=== PATIENT | female | born 1955 | race Caucasian/White ===

== ENCOUNTER → 2016-10-22 | Outpatient (CLI) | payer OTHER, MEDICAID ==
[~2016-10-22] MED LIST: ACYC-114 PO; ACYC400T4 PO; ALBU18HF INH; ALEN70TA3 PO; ANAS1TAB PO; ATAZ300C PO; BACL-19 PO; CALC-451 PO; CHON400C PO; DICL100G8 TP; DRON2.5C PO; DUONEB; EMTR1TAB12 PO; FLONASE; FLUT12AE INH; FURO20TA3 PO; GLUC1500 PO; GUAI-110 PO; LEVO750T26 PO; LISI2.5T PO; METH4TAB2 PO; METO25TA35 PO; OXYC10TA6 PO; OXYC5CAP4 PO; PRAV20TA2 PO; PRED10TA PO; PRED20TA PO; PROBIOTIC; REGADENOSON 0.4 MG/5 ML SYRINGE ONE; RITO100C PO; SULF1TAB3 PO; TIOT18CA INH; TRAM50TA2 PO; VENTOLIN HFA
== END | disposition home or self-care (01) ==
LOC: RAD 11:53 → MERGE 12:30
PROVIDERS: ATTEND Internal Medicine Cardiovascular Disease
DX: I10 Essential (primary) hypertension (principal); R60.9 Edema, unspecified
CPT/HCPCS: 78452; 93017; A9502; C9898; J2785

== ENCOUNTER 2016-11-12 20:05 | Emergency (ER) | payer OTHER, MEDICAID ==
[~2016-11-12] VITALS: Ht 154.9 cm; Wt 50.0 kg
[~2016-11-12 20:05] MED LIST changes: -REGADENOSON 0.4 MG/5 ML SYRINGE ONE
[2016-11-12 20:16] VITALS: BP 124/66
[2016-11-12] MEDS ORDERED: SODIUM CHLORIDE FLUSH 10ML SYR IVF ONE (21:30)
[2016-11-12] MEDS ORDERED: methylPREDNISolone SOD SUCC 125 MG/2 ML IVP ONE (21:30)
[2016-11-12 21:37] LABS: BLOOD UREA NITROGEN 24 mg/dL (7-18)
[2016-11-12] MEDS ORDERED: ALBUTEROL/IPRATROPIUM 2.5MG/0.5MG, 3 ML NPPB ONE (22:00)
[2016-11-12] MEDS ORDERED: ALBUTEROL/IPRATROPIUM 2.5MG/0.5MG, 3 ML ONE (22:04)
[2016-11-12] MEDS ORDERED: methylPREDNISolone SOD SUCC 125 MG/2 ML ONE (22:09)
== END 2016-11-12 23:44 | disposition home or self-care (01) ==
LOC: ED 23:30
DX: J44.1 Chronic obstructive pulmonary disease with (acute) exacerbation (principal); M79.89 Other specified soft tissue disorders; Z87.891 Personal history of nicotine dependence; Z85.3 Personal history of malignant neoplasm of breast
CPT/HCPCS: 36415; 71010; 80048; 82040; 83880; 84484; 85025; 93005; 94640; 96374; 99285; J2930; J7620

== ENCOUNTER 2017-01-29 11:53 | Inpatient (IN) | payer OTHER, MEDICAID ==
[~2017-01-29] VITALS: Ht 172.7 cm; Wt 50.7 kg
[~2017-01-29 11:53] MED LIST changes: +DICL100G19 TP; -DICL100G8 TP; -EMTR1TAB12 PO; +EMTR1TAB8 PO; +OXYC5CAP2 PO; -OXYC5CAP4 PO; +SULF-169 PO; -SULF1TAB3 PO
[2017-01-29] MEDS ORDERED: PLEASE ENTER HEIGHT AND WEIGHT MC SCH (12:30)
[2017-01-29] MEDS ORDERED: ASPIRIN 81 MG TABLET CHEW PO ONE (12:30)
[2017-01-29] MEDS ORDERED: SODIUM CHLORIDE FLUSH 10ML SYR IVF ONE (12:30)
[2017-01-29] MEDS ORDERED: ALBUTEROL SULFATE 2.5 MG/3 ML NPPB ONE (12:30)
[2017-01-29] MEDS ORDERED: ASPIRIN 81 MG TABLET CHEW ONE (12:33)
[2017-01-29 12:37] LABS: HEMATOCRIT 37.3 % (34.6-47.8); HEMOGLOBIN 12.4 g/dL (11.7-16.4); WHITE BLOOD COUNT 3.2 x10^3/uL (3.4-10)
[2017-01-29 12:46] LABS: BLOOD UREA NITROGEN 10 mg/dL (7-18)
[2017-01-29 12:52] LABS: ASPARTATE AMINO TRANSFERASE 27 U/L (15-37)
[2017-01-29 12:59] LABS: IS PT STATUS REG ER OR PRE ER? YES
[2017-01-29] MEDS ORDERED: OMNIPAQUE 350 MG/ML, 100ML BOTTLE ONE (14:12)
[2017-01-29] MEDS ORDERED: ALBUTEROL/IPRATROPIUM 2.5MG/0.5MG, 3 ML ONE (14:27)
[2017-01-29] MEDS ORDERED: ONDANSETRON 2MG/ML, 2ML IVPush PRN (15:30)
[2017-01-29] MEDS ORDERED: HYDROcodone/APAP 5/325 TABLET PO PRN (15:30)
[2017-01-29] MEDS ORDERED: ONDANSETRON ODT 4 MG PO PRN (15:30)
[2017-01-29] MEDS ORDERED: LABETALOL 5MG/ML, 20ML IVPush PRN (15:30)
[2017-01-29] MEDS ORDERED: morphine SULFATE 10 MG/ML, 1ML IVPush PRN (15:30)
[2017-01-29] MEDS ORDERED: DILT120C80 PO (15:39)
[2017-01-29 16:10] LABS: IS PT STATUS REG ER OR PRE ER? YES
[2017-01-29 17:13] VITALS: BP 129/76
[2017-01-29] MEDS ORDERED: ALBUTEROL SULFATE INH PRN (18:00)
[2017-01-29] MEDS ORDERED: GUAIFENESIN HOMEMEDPO PRN (18:00)
[2017-01-29] MEDS: [UNRECOGNIZED DRUG - OTHER] MC SCH (18:00)
[2017-01-29] MEDS ORDERED: PSEUDOEPHEDRNE HCL HOMEMEDPO PRN (18:00)
[2017-01-29] MEDS: ENOXAPARIN 40 MG/0.4 ML SQ SCH (18:32)
[2017-01-29] MEDS: ALBUTEROL/IPRATROPIUM 2.5MG/0.5MG, 3 ML NPPB SCH (19:10)
[2017-01-29 20:00] VITALS: BP 114/79
[2017-01-29] MEDS ORDERED: FLU VACC QS2017-18 (36MOS+) UP/PF 0.5 ML IM-VACC ONE (20:00)
[2017-01-29] MEDS: FLUTICASONE PROPIONATE INH SCH (21:00)
[2017-01-29] MEDS: BACLOFEN 10 MG TABLET PO SCH (21:23)
[2017-01-29] MEDS: DRONABINOL 2.5 MG CAPSULE PO SCH ×4 (21:23→23:11)
[2017-01-29] MEDS: ACYCLOVIR 400 MG TABLET PO SCH (21:23)
[2017-01-29] MEDS: PRAVASTATIN 20 MG TABLET PO SCH (21:23)
[2017-01-29] MEDS: DIPHENHYDRAMINE 50 MG CAPSULE PO PRN (21:24)
[2017-01-29 22:30] LABS: IS PT STATUS REG ER OR PRE ER? NO
[2017-01-30 01:03] VITALS: BP 109/79
[2017-01-30] MEDS: [UNRECOGNIZED DRUG - OTHER] MC SCH ×2 (02:00→10:00)
[2017-01-30] MEDS: DRONABINOL 2.5 MG CAPSULE PO SCH ×2 (05:46→17:27)
[2017-01-30 07:50] VITALS: BP 130/84
[2017-01-30] MEDS: ALBUTEROL/IPRATROPIUM 2.5MG/0.5MG, 3 ML NPPB SCH ×4 (07:50→19:20)
[2017-01-30] MEDS: FLUTICASONE PROPIONATE INH SCH ×2 (09:00→21:00)
[2017-01-30] MEDS ORDERED: ALENDRONATE 70 MG TABLET PO SCH (09:00)
[2017-01-30] MEDS ORDERED: IPRATROPIUM 0.5 MG/2.5 ML INHA NPPB SCH (09:00)
[2017-01-30] MEDS: DILTIAZEM 120 MG CAP.ER.24H PO SCH (09:09)
[2017-01-30] MEDS: BACLOFEN 10 MG TABLET PO SCH ×2 (09:09→19:54)
[2017-01-30] MEDS: ACYCLOVIR 400 MG TABLET PO SCH ×2 (09:09→19:54)
[2017-01-30] MEDS: CALCIUM/VITAMIN D3 250-125 TABLET PO SCH (09:09)
[2017-01-30 09:41] LABS: HEMATOCRIT 41.8 % (34.6-47.8); HEMOGLOBIN 13.6 g/dL (11.7-16.4); WHITE BLOOD COUNT 4.1 x10^3/uL (3.4-10)
[2017-01-30 09:44] LABS: BLOOD UREA NITROGEN 13 mg/dL (7-18)
[2017-01-30 09:47] LABS: ASPARTATE AMINO TRANSFERASE 39 U/L (15-37)
[2017-01-30] MEDS: ASPIRIN 81 MG TABLET EC PO SCH (12:08)
[2017-01-30 14:07] VITALS: BP 131/79
[2017-01-30] MEDS: ENOXAPARIN 40 MG/0.4 ML SQ SCH (17:23)
[2017-01-30 19:08] VITALS: BP 127/79
[2017-01-30] MEDS: GUAIFENESIN/DM 200-20MG, 10ML UDC PO PRN (19:54)
[2017-01-30] MEDS: DIPHENHYDRAMINE 50 MG CAPSULE PO PRN (19:54)
[2017-01-30] MEDS: PRAVASTATIN 20 MG TABLET PO SCH (19:54)
[2017-01-31 02:00] VITALS: BP 116/68
[2017-01-31] MEDS: ASPIRIN 81 MG TABLET EC PO SCH (05:18)
[2017-01-31] MEDS: DRONABINOL 2.5 MG CAPSULE PO SCH ×2 (05:18→17:27)
[2017-01-31 05:46] LABS: HEMATOCRIT 33.9 % (34.6-47.8); HEMOGLOBIN 11.1 g/dL (11.7-16.4); WHITE BLOOD COUNT 4.6 x10^3/uL (3.4-10)
[2017-01-31 06:00] LABS: BLOOD UREA NITROGEN 22 mg/dL (7-18)
[2017-01-31 06:31] VITALS: BP 128/82
[2017-01-31] MEDS: ALBUTEROL/IPRATROPIUM 2.5MG/0.5MG, 3 ML NPPB SCH ×4 (08:13→20:20)
[2017-01-31] MEDS: TRIUMEQ PO SCH (09:00)
[2017-01-31] MEDS: FLUTICASONE PROPIONATE INH SCH ×2 (09:00→21:00)
[2017-01-31] MEDS: BACLOFEN 10 MG TABLET PO SCH ×2 (09:03→19:34)
[2017-01-31] MEDS: ACYCLOVIR 400 MG TABLET PO SCH ×2 (09:03→19:34)
[2017-01-31] MEDS: DILTIAZEM 120 MG CAP.ER.24H PO SCH (09:03)
[2017-01-31] MEDS: CALCIUM/VITAMIN D3 250-125 TABLET PO SCH (09:03)
[2017-01-31 13:01] VITALS: BP 125/74
[2017-01-31] MEDS ORDERED: DILTIAZEM 60 MG CAP.ER.12H PO ONE (15:30)
[2017-01-31] MEDS: ENOXAPARIN 40 MG/0.4 ML SQ SCH (17:26)
[2017-01-31] MEDS: GUAIFENESIN/DM 200-20MG, 10ML UDC PO PRN (19:35)
[2017-01-31] MEDS: PRAVASTATIN 20 MG TABLET PO SCH (19:35)
[2017-01-31] MEDS: DIPHENHYDRAMINE 50 MG CAPSULE PO PRN (19:35)
[2017-01-31 19:39] VITALS: BP 122/75
[2017-02-01 02:00] VITALS: BP 148/86
[2017-02-01 05:24] LABS: HEMATOCRIT 34.7 % (34.6-47.8); HEMOGLOBIN 11.4 g/dL (11.7-16.4); WHITE BLOOD COUNT 5.6 x10^3/uL (3.4-10)
[2017-02-01] MEDS: ASPIRIN 81 MG TABLET EC PO SCH (05:25)
[2017-02-01] MEDS: DRONABINOL 2.5 MG CAPSULE PO SCH ×2 (05:26→16:41)
[2017-02-01 05:34] LABS: BLOOD UREA NITROGEN 25 mg/dL (7-18)
[2017-02-01] MEDS: ALBUTEROL/IPRATROPIUM 2.5MG/0.5MG, 3 ML NPPB SCH ×4 (07:00→20:24)
[2017-02-01 07:23] VITALS: BP 123/79
[2017-02-01] MEDS: FLUTICASONE PROPIONATE INH SCH ×2 (08:05→21:00)
[2017-02-01] MEDS: BACLOFEN 10 MG TABLET PO SCH ×2 (08:18→21:51)
[2017-02-01] MEDS: CALCIUM/VITAMIN D3 250-125 TABLET PO SCH (08:18)
[2017-02-01] MEDS: TRIUMEQ PO SCH (08:18)
[2017-02-01] MEDS: ACYCLOVIR 400 MG TABLET PO SCH ×2 (08:18→21:51)
[2017-02-01] MEDS ORDERED: DILTIAZEM CD 180 MG CAP.ER.24H PO SCH (09:00)
[2017-02-01 13:11] VITALS: BP 102/61
[2017-02-01] MEDS: DILTIAZEM 30 MG TABLET PO SCH ×2 (13:13→21:51)
[2017-02-01] MEDS: ENOXAPARIN 40 MG/0.4 ML SQ SCH (16:38)
[2017-02-01 19:51] VITALS: BP 109/71
[2017-02-01] MEDS: PRAVASTATIN 20 MG TABLET PO SCH (21:51)
[2017-02-01] MEDS: DIPHENHYDRAMINE 50 MG CAPSULE PO PRN (21:51)
[2017-02-02 02:03] VITALS: BP 118/72
[2017-02-02] MEDS: ALBUTEROL/IPRATROPIUM 2.5MG/0.5MG, 3 ML NPPB SCH ×4 (06:10→19:01)
[2017-02-02] MEDS: ASPIRIN 81 MG TABLET EC PO SCH (06:26)
[2017-02-02] MEDS: DRONABINOL 2.5 MG CAPSULE PO SCH ×2 (06:27→16:36)
[2017-02-02] MEDS ORDERED: CALCIUM CARBONATE 500 MG TAB.CHEW PO PRN (08:00)
[2017-02-02 08:33] VITALS: BP 132/81
[2017-02-02] MEDS: FLUTICASONE PROPIONATE INH SCH ×2 (09:00→21:00)
[2017-02-02] MEDS: TRIUMEQ PO SCH (09:12)
[2017-02-02] MEDS: ACYCLOVIR 400 MG TABLET PO SCH ×2 (09:14→21:24)
[2017-02-02] MEDS: CALCIUM/VITAMIN D3 250-125 TABLET PO SCH (09:15)
[2017-02-02] MEDS: DILTIAZEM 240 MG CAP.ER.24H PO SCH (09:15)
[2017-02-02] MEDS: BACLOFEN 10 MG TABLET PO SCH ×2 (09:16→21:24)
[2017-02-02 13:22] VITALS: BP 110/70
[2017-02-02 14:11] VITALS: BP 115/66
[2017-02-02 15:01] LABS: PATH.CAST-FLAG NOT PRESENT; SPERM-FLAG NOT PRESENT; SRC-FLAG NOT PRESENT; XTAL-FLAG NOT PRESENT; YLC-FLAG NOT PRESENT
[2017-02-02] MEDS: ENOXAPARIN 40 MG/0.4 ML SQ SCH (16:36)
[2017-02-02 19:27] VITALS: BP 127/80
[2017-02-02] MEDS: PRAVASTATIN 20 MG TABLET PO SCH (21:24)
[2017-02-02] MEDS: DIPHENHYDRAMINE 50 MG CAPSULE PO PRN (21:24)
[2017-02-03 01:20] VITALS: BP 108/69
[2017-02-03] MEDS: ASPIRIN 81 MG TABLET EC PO SCH (05:32)
[2017-02-03] MEDS: DRONABINOL 2.5 MG CAPSULE PO SCH ×2 (05:32→18:29)
[2017-02-03 06:52] VITALS: BP 120/75
[2017-02-03] MEDS: ALBUTEROL/IPRATROPIUM 2.5MG/0.5MG, 3 ML NPPB SCH ×4 (07:56→20:00)
[2017-02-03] MEDS: TRIUMEQ PO SCH (09:00)
[2017-02-03] MEDS: FLUTICASONE PROPIONATE INH SCH ×2 (09:00→22:03)
[2017-02-03] MEDS: ACYCLOVIR 400 MG TABLET PO SCH ×2 (09:55→22:02)
[2017-02-03] MEDS: BACLOFEN 10 MG TABLET PO SCH ×2 (09:55→22:02)
[2017-02-03] MEDS: CALCIUM/VITAMIN D3 250-125 TABLET PO SCH (09:58)
[2017-02-03 10:23] LABS: HEMATOCRIT 39.4 % (34.6-47.8); HEMOGLOBIN 12.4 g/dL (11.7-16.4); WHITE BLOOD COUNT 5.2 x10^3/uL (3.4-10)
[2017-02-03 10:34] LABS: BLOOD UREA NITROGEN 17 mg/dL (7-18)
[2017-02-03] MEDS: DILTIAZEM 240 MG CAP.ER.24H PO SCH (10:56)
[2017-02-03] MEDS ORDERED: SODIUM CHLORIDE 0.9%, 250ML IVBOLUS ONE (12:00)
[2017-02-03 13:43] VITALS: BP 136/71
[2017-02-03] MEDS ORDERED: SODIUM CHLORIDE 0.9% 1,000 ML IV SCH (17:00)
[2017-02-03] MEDS: ENOXAPARIN 40 MG/0.4 ML SQ SCH (17:54)
[2017-02-03 19:04] VITALS: BP 113/73
[2017-02-03] MEDS: PRAVASTATIN 20 MG TABLET PO SCH (22:02)
[2017-02-04 00:59] VITALS: BP 129/80
[2017-02-04] MEDS: ASPIRIN 81 MG TABLET EC PO SCH (05:01)
[2017-02-04] MEDS: DRONABINOL 2.5 MG CAPSULE PO SCH (05:01)
[2017-02-04] MEDS: ALBUTEROL/IPRATROPIUM 2.5MG/0.5MG, 3 ML NPPB SCH ×2 (08:25→12:58)
[2017-02-04] MEDS: TRIUMEQ PO SCH (09:00)
[2017-02-04] MEDS: FLUTICASONE PROPIONATE INH SCH (09:00)
[2017-02-04] MEDS: DILTIAZEM 240 MG CAP.ER.24H PO SCH (09:08)
[2017-02-04] MEDS: CALCIUM/VITAMIN D3 250-125 TABLET PO SCH (09:08)
[2017-02-04] MEDS: BACLOFEN 10 MG TABLET PO SCH (09:09)
[2017-02-04] MEDS: ACYCLOVIR 400 MG TABLET PO SCH (09:09)
[2017-02-04 09:16] VITALS: BP 131/79
[2017-02-04] MEDS ORDERED: PRED20TA PO (09:28)
[2017-02-04] MEDS ORDERED: DILT240C55 PO (09:28)
== END 2017-02-04 14:28 | disposition home health service (06) | DRG 189 ==
LOC: ED 15:28 → EDIP 15:29 → ED 15:38 → 5SO 16:50 → 4WST 02-03 05:44
PROVIDERS: ADMIT Hospitalist; ATTEND Hospitalist
DX: J96.21 Acute and chronic respiratory failure with hypoxia (principal); Z99.81 Dependence on supplemental oxygen; J44.1 Chronic obstructive pulmonary disease with (acute) exacerbation; Z88.8 Allergy status to other drugs, medicaments and biological substances; D72.819 Decreased white blood cell count, unspecified; F17.200 Nicotine dependence, unspecified, uncomplicated; F41.0 Panic disorder [episodic paroxysmal anxiety]; G89.29 Other chronic pain; I10 Essential (primary) hypertension; I25.10 Atherosclerotic heart disease of native coronary artery without angina pectoris; I73.9 Peripheral vascular disease, unspecified; M81.0 Age-related osteoporosis without current pathological fracture; Z85.3 Personal history of malignant neoplasm of breast; Z90.13 Acquired absence of bilateral breasts and nipples; Z79.82 Long term (current) use of aspirin; R00.0 Tachycardia, unspecified
CPT/HCPCS: 36415; 71010; 71275; 80048; 80053; 81001; 82040; 82306; 82746; 83540; 83550; 83605; 83735; 84425; 84439; 84443; 84484; 85025; 85610; 85730; 87086; 90686; 93005; 93306; 94640; 99285; J1650; J7613; J7620; Q0167; Q9967; J7030; J7050; J7512

== ENCOUNTER 2017-03-13 11:55 | Emergency (ER) | payer OTHER, MEDICAID ==
[~2017-03-13] VITALS: Ht 162.6 cm; Wt 54.5 kg
[~2017-03-13 11:55] MED LIST changes: +DILT120C80 PO; +DILT240C55 PO
[2017-03-13] MEDS ORDERED: ALBUTEROL/IPRATROPIUM 2.5MG/0.5MG, 3 ML ONE (12:46)
[2017-03-13] MEDS ORDERED: MECLIZINE CHEWABLE 25 MG TAB ONE (12:49)
[2017-03-13] MEDS ORDERED: ALBUTEROL/IPRATROPIUM 2.5MG/0.5MG, 3 ML NPPB ONE (13:00)
[2017-03-13] MEDS ORDERED: MECLIZINE CHEWABLE 25 MG TAB PO ONE (13:00)
[2017-03-13 13:05] LABS: HEMATOCRIT 40.6 % (34.6-47.8); HEMOGLOBIN 13.6 g/dL (11.7-16.4); WHITE BLOOD COUNT 5.6 x10^3/uL (3.4-10)
[2017-03-13 13:16] LABS: ASPARTATE AMINO TRANSFERASE 35 U/L (15-37); BLOOD UREA NITROGEN 12 mg/dL (7-18)
[2017-03-13 13:26] LABS: IS PT STATUS REG ER OR PRE ER? YES
[2017-03-13 13:55] VITALS: BP 139/85
== END 2017-03-13 14:50 | disposition home or self-care (01) ==
LOC: ED 14:05
DX: J44.1 Chronic obstructive pulmonary disease with (acute) exacerbation (principal); J20.9 Acute bronchitis, unspecified; I10 Essential (primary) hypertension; Z99.81 Dependence on supplemental oxygen; Z85.3 Personal history of malignant neoplasm of breast
CPT/HCPCS: 36415; 71020; 80053; 83880; 84484; 85025; 93005; 94640; 99285; J7620